=== PATIENT | male | born 1995 | race Caucasian/White ===

== ENCOUNTER 2025-06-23 08:12 | Outpatient (OUT) | payer OTHER, SELFPAY ==
--- OUTSIDE RECORDS SUMMARY | 2025-06-23 08:20 | XMS_ITS | Clinical Summary ---
Author Organization [facility] Healthcare Address [address] [place] [address] Care Team Providers Care Supervisor Waterproofing Name Role Phone Ana Abdi METAL BONDER Unavailable [phone] Elodia Das MD Primary Care Provider [phone] Allergies No known active allergies Medications buPROPion XL (Wellbutrin XL) 150 MG 24 hr tabletIndicatio ns:Major depressive disorder, single episode, mild Take 1 tablet (150 mg) by mouth in the morning. 7 tablet 09/18/2024 Active amitriptyline (Elavil) 25 MG tabletIndicatio ns:Jaw pain,Major depressive disorder, single episode, mild Take 1 tablet (25 mg) by mouth at bedtime 90 tablet 3 10/24/2024 Active pantoprazole (ProtoNix) 20 MG EC tabletIndicatio ns:Chronic GERD Take 1 tablet (20 mg) by mouth in the morning. Take before meals. 90 tablet 3 12/19/2024 Active Active Problems Problem Noted Date Diagnosed Date Chronic GERD 11/22/2023 SRAVANI (generalized anxiety disorder) 11/22/2023 Major depressive disorder, single episode, mild 11/22/2023 Social History Tobacco Use Types Packs/Day Years Used Date Smoking Tobacco: Never Smokeless Tobacco: Never Tobacco Cessation:Counseling Given: Not Answered B1300 Health Literacy Answer Date Recor ded How often do you need to hav e someone help you when you read instructions, pamphlets, or other written material from your doctor or pharmacy? Never 09/17/2024 Social Connection and Isolat ion Panel [NHANES] Answer Date Recorded In a typical week, how many times do you talk on the phone with family, friends, or neighbors? More than three times a week 09/17/2024 How often do you get togethe r with friends or relatives? Twice a week 09/17/2024 How often do you attend chur ch or mosque services? Never 09/17/2024 Do you belong to any clubs o r organizations such as voodoo groups, unions, fraternal or athletic groups, or school groups? Yes 09/17/2024 How often do you attend meet ings of the clubs or organizations you belong to? More than 4 times per year 09/17/2024 Are you , , di vorced, , never , or living with a partner? Never 09/17/2024 AUDIT-C Answer Date Recorded Q1: How often do you have a drink containing alc ohol? 2-3 times a week 09/17/2024 Q2: How many drinks containi ng alcohol do you have on a typical day when you are drinking? 1 or 2 09/17/2024 Q3: How often do you have si x or more drinks on one occasion? Less than monthly 09/17/2024 Overall Financial Resource Strain (CARDIA) Answe r Date Recorded How hard is it for you to pa y for the very basics like food, housing, medical care, and heating? Not hard at all 09/17/2024 [facility] - Occupational Stress Questionnaire Answer Date Recorded Do you feel stress - tense, restless, nervous, or anxious, or unable to sleep at night because your mind is troubled all the time - these days? Only a little 09/17/2024 Exercise Vital Sign Answer Date Recorde d On average, how many days pe r week do you engage in moderate to strenuous exercise (like a brisk walk)? 2 days 09/17/2024 On average, how many minutes do you engage in exercise at this level? 60 min 09/17/2024 Hunger Vital Sign Answer Date Recorded Within the past 12 months, y ou worried that your food would run out before you got the money to buy more. Never true 09/17/20 24 Within the past 12 months, t he food you bought just didn't last and you didn't have money to get more. Never true 09/17/2024 PRAPARE - Transportation Answer Date Re corded In the past 12 months, has l ack of transportation kept you from medical appointments or from getting medications? No 08/28 In the past 12 months, has l ack of transportation kept you from meetings, work, or from getting things needed for daily living? No 09/17/2024 Housing Stability Vital Sign Answer Praveen e Recorded In the last 12 months, was t here a time when you were not able to pay the mortgage or rent on time? No 09/17/2024 Number of Times Moved in the Last Year Not on fi le 09/17/2024 At any time in the past 12 m [facility], were you homeless or living in a long term (including now)? No 09/17/2024 Sex and Gender Information Value Date Recorded Sex Assigned at Not on file Legal Sex Male 11:50 PM EDT Gender Identity Not on file Sexual Orientation Not on file Last Filed Vital Signs Vital Sign Reading Time Taken Comments Blood Pressure 150/90 09/18/2024 10:11 AM EST Pulse 73 09/18/2024 10:11 AM EST Temperature 36.9 C (98.5 F) 09/18/2024 10:11 AM EST Respiratory Rate - - Oxygen Saturation 98% 09/18/2024 10:11 AM EST Inhaled Oxygen Concentration - - Weight 88.5 kg (195 lb 3.2 oz) 09/18/2024 10:11 AM EST Height 175.3 cm (5' 9 ) 09/18/2024 10:11 AM EST Body Mass Index 28.83 09/18/2024 10:11 AM EST Plan of Treatment Health Maintenance Due Date Last Done Comments Influenza Vaccine (#1) 2025 07/24/2019 Insurance [employer] Care Teams Supervisor Waterproofing Relationship Specialty Start Date End Date Ana Abdi NP [address] [place] [id number] PCP - [facility] 12/26/17 09/26/99 Elodia Das MD [address] [place] [address] PCP - General Family Medicine 02/02/23
[2025-06-23 09:23] LABS: Alanine Aminotransferase 44 U/L (16-63); Albumin Globulin Ratio 1.1; Albumin Level 4.1 g/dL (3.4-5.0); Alkaline Phosphatase 74 U/L (46-116); Anion Gap 9.8; Aspartate Amino Transferase 21 U/L (15-37); Blood Urea Nitrogen 13.0 mg/dL (7.0-18.0); Calcium 9.0 mg/dL (8.5-10.1); Carbon Dioxide 30.1 mmol/L (21.0-32.0); Chloride 103 mmol/L (98-107); Cholesterol 234 mg/dL (<=200); Estimated GFR (African America >60 (>=60 mL/min/1.73m^2); Estimated GFR (Non-African Ame >60 (>=60 mL/min/1.73m^2); Globulin 3.6 g/dL; Glucose 97 mg/dL (74-106); HDL Cholesterol 36 mg/dL (40-60); Potassium 3.9 mmol/L (3.5-5.1); Sodium 139 mmol/L (136-145); Total Protein 7.7 g/dL (6.4-8.2); Triglycerides 146 mg/dL (<=150); VLDL CHOLESTEROL 29.2 mg/dL
== END 2025-06-23 08:13 | disposition home or self-care (01) ==
PROVIDERS: PCP Nurse Practitioner Family; Visit Provider Nurse Practitioner Family
DX: Z13.228 Encounter for screening for other metabolic disorders (principal); Z13.220 Encounter for screening for lipoid disorders
CPT/HCPCS: 36415; 80053; 80061